=== PATIENT | female | born 1980 | race African-American/Black ===

== ENCOUNTER 2016-08-31 04:25 | Emergency (ER) | payer BC ==
[~2016-08-31] VITALS: Ht 175.3 cm; Wt 115.0 kg
[2016-08-31] MEDS ORDERED: ONDANSETRON HCL 4MG/2ML VIAL IV STA (04:42)
[2016-08-31] MEDS ORDERED: SODIUM CHLORIDE 0.9% 1,000 ML IV ONE (04:42)
[2016-08-31] MEDS ORDERED: FAMOTIDINE 20MG/2ML VIAL IV ONE (04:45)
[2016-08-31 05:13] LABS: BASOPHILS % 0.5 % (0.0-2.0); HEMATOCRIT. 44.5 % (36.0-48.0); HEMOGLOBIN. 15.2 g/dL (12.0-16.0); LYMPHOCYTES % 15.4 % (20.0-50.0); MEAN CORPUSCULAR VOLUME 94.1 fL (81.0-99.0); MEAN PLATELET VOLUME 10.8 fl (7.4-10.4); NEUTROPHILS % 82.1 % (40.0-76.0); PLATELET 242 x1000/uL (130-400); RED BLOOD CELL COUNT 4.73 mill/uL (4.2-5.4); RED CELL DISTRIBUTION WIDTH 14.1 % (11.6-14.6)
[2016-08-31 05:19] LABS: HCG SCREEN NEGATIVE
[2016-08-31 05:25] LABS: CARBON DIOXIDE 25 mEq/L (21-32); CHLORIDE 104 mEq/L (98-107)
[2016-08-31] MEDS ORDERED: KETOROLAC 30MG/ML VIAL IV ONE (05:30)
[2016-08-31 07:10] LABS: CLARITY URINE CLOUDY (CLEAR); COLOR URINE YELLOW (YELLOW); GLUCOSE URINE NEGATIVE (NEGATIVE); KETONES URINE 1+ (NEGATIVE); LEUKOCYTE ESTERASE URINE NEGATIVE (NEGATIVE); NITRITE URINE NEGATIVE (NEGATIVE); OCCULT BLOOD URINE 1+ (NEGATIVE); PROTEIN URINE TRACE (NEGATIVE); SPECIFIC GRAVITY URINE 1.027 (1.005-1.030)
[2016-08-31] MEDS ORDERED: ONDANSETRON HCL 4MG/2ML VIAL IV ONE (07:15)
[2016-08-31] MEDS ORDERED: DICYCLOMINE HCL 10MG/ML 2ML AMP IM ONE (07:15)
[2016-08-31] MEDS ORDERED: METOCLOPRAMIDE HCL 10MG/2ML VIAL IV ONE (09:45)
[2016-08-31] MEDS ORDERED: MAGNESIUM/ALUMINUM HYDROXIDE/SIMETHICONE 30ML UDC PO ONE (09:45)
[2016-08-31] MEDS ORDERED: MORPHINE SULFATE 4 MG/ML CPJ (NOT FOR IM USE) IV ONE (10:00)
[2016-08-31] MEDS ORDERED: MORPHINE SULFATE 1MG/ML 1ML INJ SYR(NEO) IV ONE (10:00)
[2016-08-31] MEDS: VISCOUS LIDOCAINE 2% 15 ML UDC MM PRN (10:25)
[2016-08-31 11:31] VITALS: BP 162/72
== END 2016-08-31 11:32 | disposition home or self-care (01) ==
LOC: ER 04:25
DX: R10.84 Generalized abdominal pain (principal); R11.2 Nausea with vomiting, unspecified; F12.90 Cannabis use, unspecified, uncomplicated
CPT/HCPCS: 36415; 76705; 80053; 81001; 83690; 84703; 85025; 96361; 96372; 96374; 96375; 96376; 99285; J0500; J1885; J2270; J2405; J2765; J3490; J7030; Z7610